=== PATIENT | male | born 1985 | race American Indian/Alaskan Native ===

== ENCOUNTER 2021-12-27 12:23 | Emergency (ER) | payer OTHER ==
[2021-12-27 12:54] VITALS: BP 118/77
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
== END 2021-12-27 15:52 | disposition home or self-care (01) ==
LOC: ED 12:23
DX: M54.2 Cervicalgia (principal); M54.50 Low back pain, unspecified; V89.2XXA Person injured in unspecified motor-vehicle accident, traffic, initial encounter; Y93.89 Activity, other specified; Y92.89 Other specified places as the place of occurrence of the external cause; Y99.8 Other external cause status
CPT/HCPCS: 99282

== ENCOUNTER 2022-01-25 10:31 | Emergency (ER) | payer SELFPAY ==
[2022-01-25] MEDS ORDERED: IBUPROFEN 800 MG TAB PO ONE (11:34)
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
[2022-01-25 12:37] VITALS: BP 132/87
== END 2022-01-25 12:40 | disposition home or self-care (01) ==
LOC: ED 10:31
DX: M54.9 Dorsalgia, unspecified (principal); V87.7XXA Person injured in collision between other specified motor vehicles (traffic), initial encounter; Y93.89 Activity, other specified; Y92.488 Other paved roadways as the place of occurrence of the external cause; Y99.8 Other external cause status
CPT/HCPCS: 72100; 99283